=== PATIENT | female | born 1980 | race Caucasian/White ===

== ENCOUNTER → 2016-11-12 | Outpatient (CLI) | payer BC ==
[2016-11-12 09:39] LABS: URINE TOTAL PROTEIN CONC < 5.0 mg/dL (<11.9)
[2016-11-12 09:40] LABS: URINE COLLECTION TIME 24 HOURS (0.0-24); URINE CREATININE TIMED 1550.77 mg/24HRS (600-1800); URINE TOTAL PROTEIN TIMED 86 mg/24HRS (<149.1)
== END | disposition home or self-care (01) ==
LOC: LAB 08:30
PROVIDERS: Family Medicine
DX: Z13.1 Encounter for screening for diabetes mellitus (principal); N26.1 Atrophy of kidney (terminal); R51 Headache; R63.4 Abnormal weight loss; E55.9 Vitamin D deficiency, unspecified; R53.83 Other fatigue

== ENCOUNTER → 2016-11-21 | Outpatient (CLI) | payer BC | END | disposition home or self-care (01) | LOC: US 11-16 17:00 | DX: N26.1 Atrophy of kidney (terminal) (principal); N32.89 Other specified disorders of bladder ==

== ENCOUNTER 2017-05-15 22:20 | Emergency (ER) | payer BC ==
[~2017-05-15] VITALS: Ht 160 cm; Wt 79.4 kg
[2017-05-15 23:08] LABS: BASO % 0.5 % (0.0-1.0); EOS # 0.1 10*3/uL (0.0-0.4); HEMATOCRIT 38.9 % (37.0-47.0); HEMOGLOBIN 13.2 g/dl (12.0-16.0); LYMPH # 1.6 10*3/uL (1.3-4.4); LYMPH % 25.7 % (27.0-41.0); MEAN CELL VOLUME 84.2 fl (81.0-99.0); MEAN CORPUSCULAR HGB 28.6 pg (27.0-31.0); MEAN CORPUSCULAR HGB CONC 33.9 g/dl (33.0-37.0); MEAN PLATELET VOLUME 10.4 fl (9.6-12.3); MONO # 0.5 10*3/uL (0.1-1.0); MONO % 7.5 % (3.0-9.0); NEUT # 4.1 10*3/uL (2.3-7.9); NEUT % 65.1 % (47.0-73.0); PLATELET COUNT AUTOMATED 174 10*3/uL (130-400); RED BLOOD COUNT 4.62 10*6/uL (4.10-5.10); RED CELL DISTRI WIDTH 12.6 % (0-14.5); WHITE BLOOD COUNT 6.3 10*3/uL (4.8-10.8)
[2017-05-15 23:20] LABS: BUN 13 mg/dl (7-24); CHLORIDE 103 mmol/L (98-107); CREATININE 0.89 mg/dL (0.55-1.02); POTASSIUM 3.2 mmol/L (3.5-5.1); SODIUM 139 mmol/L (136-145)
[2017-05-16] MEDS ORDERED: ZOFRAN ODT4 MG SL (00:19)
[2017-05-16] MEDS ORDERED: K-TAB20 MEQ PO (00:20)
[2017-05-16] MEDS ORDERED: KETOROLAC10 MG PO (00:21)
== END 2017-05-16 00:45 | disposition home or self-care (01) ==
LOC: ED 22:20
PROVIDERS: Emergency Medicine Emergency Medical Services
DX: G43.901 Migraine, unspecified, not intractable, with status migrainosus (principal); E87.6 Hypokalemia; R73.9 Hyperglycemia, unspecified; F17.200 Nicotine dependence, unspecified, uncomplicated; Z98.890 Other specified postprocedural states

== ENCOUNTER 2019-01-12 17:26 | Emergency (ER) | payer BC ==
[~2019-01-12] VITALS: Ht 160 cm; Wt 77.1 kg
[~2019-01-12 17:26] MED LIST: K-TAB20 MEQ PO; KETOROLAC10 MG PO; ZOFRAN ODT4 MG SL
== END 2019-01-12 19:18 | disposition home or self-care (01) ==
LOC: ED 17:26
DX: S61.212A Laceration without foreign body of right middle finger without damage to nail, initial encounter (principal); Z98.890 Other specified postprocedural states; Z79.899 Other long term (current) drug therapy; W26.8XXA Contact with other sharp object(s), not elsewhere classified, initial encounter; Y93.89 Activity, other specified; Y92.89 Other specified places as the place of occurrence of the external cause; Y99.9 Unspecified external cause status

== ENCOUNTER 2022-05-11 19:17 | Emergency (ER) | payer OTHER ==
[~2022-05-11] VITALS: Ht 182.8 cm; Wt 76.7 kg
[2022-05-11] MEDS ORDERED: NAPROSYN500 MG PO (20:58)
[2022-05-11] MEDS ORDERED: HYDROCODONE-AC1 EACH PO (20:58)
[2022-05-11] MEDS ORDERED: CYCLOBENZAPRINE10 MG PO (20:59)
== END 2022-05-11 21:10 | disposition home or self-care (01) ==
LOC: ED 19:17
DX: M75.32 Calcific tendinitis of left shoulder (principal); Z98.890 Other specified postprocedural states

== ENCOUNTER 2023-07-28 11:18 | Emergency (ER) | payer OTHER ==
[~2023-07-28] VITALS: Ht 157.4 cm; Wt 79.4 kg
[~2023-07-28 11:18] MED LIST changes: +CYCLOBENZAPRINE10 MG PO; +HYDROCODONE-AC1 EACH PO; +NAPROSYN500 MG PO
[2023-07-28] MEDS ORDERED: SODIUM CHLORIDE 0.9% 1,000 ML IV ONE (11:50)
[2023-07-28] MEDS ORDERED: diphenhydrAMINE hydrochloride 50 MG/ML VIAL IV ONE (11:55)
[2023-07-28] MEDS ORDERED: Dexamethasone Sodium Phospha 20 MG/5 ML VIAL IV ONE (11:55)
[2023-07-28] MEDS ORDERED: Metoclopramide Hydrochloride 10 MG/2 ML AMP IV ONE (11:55)
[2023-07-28 12:12] LABS: BASO # 0.1 10*3/uL (0.0-0.1); BASO % 1.1 % (0.0-1.0); EOS % 0.9 % (1.0-4.0); HEMATOCRIT 43.9 % (37.0-47.0); LYMPH # 1.7 10*3/uL (1.3-4.4); LYMPH % 36.8 % (27.0-41.0); MEAN CELL VOLUME 86.6 fl (81.0-99.0); MEAN CORPUSCULAR HGB 27.8 pg (27.0-31.0); MEAN CORPUSCULAR HGB CONC 32.1 g/dl (33.0-37.0); MEAN PLATELET VOLUME 9.7 fl (9.6-12.3); MONO # 0.4 10*3/uL (0.1-1.0); MONO % 9.2 % (3.0-9.0); NEUT # 2.4 10*3/uL (2.3-7.9); PLATELET COUNT AUTOMATED 210 10*3/uL (130-400); RED BLOOD COUNT 5.07 10*6/uL (4.10-5.10); RED CELL DISTRI WIDTH 12.8 % (0-14.5); WHITE BLOOD COUNT 4.6 10*3/uL (4.8-10.8)
[2023-07-28 12:33] LABS: BUN 16 mg/dl (9-23); CHLORIDE 105 mmol/L (98-107); POTASSIUM 4.4 mmol/L (3.4-5.1)
[2023-07-28] MEDS ORDERED: Ketorolac Tromethamine 15 MG/ML VIAL IV ONE (12:50)
[2023-07-28] MEDS ORDERED: Ondansetron Hydrochloride 4 MG/2 ML VIAL IV ONE (12:50)
[2023-07-28 13:12] LABS: BILIRUBIN Negative (Negative); BLOOD Negative (Negative); CLARITY Clear (Clear); COLOR Yellow (Yellow); GLUCOSE Negative (Negative); KETONE Negative (Negative); LEUKO ESTERASE Negative (Negative); NITRITE Negative (Negative); UROBILINOGEN 0.2 E.U./dl (0.0-1.0)
[2023-07-28 13:34] LABS: BACTERIA 3+; WBC 0-2 wbc/hpf (0-5)
[2023-07-28] MEDS ORDERED: Fosfomycin Tromethamine 3 GM PDS PO ONE (13:55)
== END 2023-07-28 14:06 | disposition home or self-care (01) ==
LOC: ED 11:18
PROVIDERS: Nurse Practitioner Family
DX: G43.909 Migraine, unspecified, not intractable, without status migrainosus (principal); R11.0 Nausea; R82.71 Bacteriuria; K21.9 Gastro-esophageal reflux disease without esophagitis; Z98.890 Other specified postprocedural states